=== PATIENT | female | born 1945 | race African-American/Black ===

== ENCOUNTER 2018-11-01 09:12 | Emergency (ER) | payer MEDICAID ==
[~2018-11-01] VITALS: Ht 167.6 cm; Wt 80.0 kg
[~2018-11-01 09:12] MED LIST: ALAVERT10 MG PO; AMOXICILLIN875 MG PO; BACTRIM DS1 TAB PO; CEPACOL SORE MT; CIPRO XR500 M1 PO; CIPRO500 MG OR; CIPRODEX1 ML AD; CIPRODEX1 ML OT; CIPROFLOXACN500 MG PO; CORTISPORIN OTI10 ML AD; DOMBORO OTIC15 ML AD; FAMOTIDINE20 M1 PO; FLONASE NASAL50 MCG; GENTAMICIN0.3 % AD; KETOROLAC 0.4% OP; LASIX 10 MG10 MG/TA1 PO; LORTAB 10 OR; MACRODANTIN100 MG PO; NAPROSYN500 MG PO; NO MEDS; OMNICEF300 MG PO; PRAVASTATIN10 MG PO; PRAVASTATIN20 MG PO; PREMARIN0.625 M1 VA; PRILOSEC40 MG PO; PYRIDIUM200 MG PO
[2018-11-01] MEDS ORDERED: LIPITOR20 MG PO (09:25)
[2018-11-01] MEDS ORDERED: OMEPRAZOLE10 MG PO (09:26)
[2018-11-01 09:47] LABS: URINE BILIRUBIN - DIPSTICK NEGATIVE (NEGATIVE); URINE BLOOD DIPSTICK MODERATE (NEGATIVE); URINE COLOR YELLOW; URINE GLUCOSE - DIPSTICK NEGATIVE (NEGATIVE); URINE KETONE TRACE mg/dL (NEGATIVE); URINE PROTEIN - DIPSTICK NEGATIVE (NEG-TRACE); URINE SPECIFIC GRAVITY 1.025; URINE UROBILINOGEN - DIPSTICK 0.2 E.U./dL (0.2)
[2018-11-01 09:48] LABS: URINE LEUK ESTERASE MODERATE (NEGATIVE); URINE NITRITE - DIPSTICK POSITIVE (Negative)
[2018-11-01 09:54] LABS: URINE BACTERIA MANY hpf; URINE SQUAMOUS EPITHELIAL CELL FEW EPI/hpf (0-FEW); URINE WBC 20-50 WBC/hpf (0-5)
[2018-11-01] MEDS ORDERED: OMNICEF300 M1 PO (09:59)
[2018-11-01 11:12] VITALS: BP 145/65
== END 2018-11-01 11:12 | disposition home or self-care (01) ==
LOC: ED 09:12
PROVIDERS: Family Medicine
DX: N39.0 Urinary tract infection, site not specified (principal); K21.9 Gastro-esophageal reflux disease without esophagitis; E78.5 Hyperlipidemia, unspecified; B96.1 Klebsiella pneumoniae [K. pneumoniae] as the cause of diseases classified elsewhere; Z87.442 Personal history of urinary calculi